=== PATIENT | male | born 1995 | race Caucasian/White ===

== ENCOUNTER 2017-12-10 01:07 | Emergency (ER) | payer SELFPAY ==
[~2017-12-10] VITALS: Ht 172.7 cm; Wt 62.6 kg
[2017-12-10 01:59] VITALS: BP 133/74
== END 2017-12-10 01:59 | disposition home or self-care (01) ==
LOC: ED 01:07
DX: J45.901 Unspecified asthma with (acute) exacerbation (principal); F17.210 Nicotine dependence, cigarettes, uncomplicated; Z88.2 Allergy status to sulfonamides
CPT/HCPCS: J7512; J7613; J7644